=== PATIENT | female | born 1960 ===

== ENCOUNTER 2017-10-05 06:18 | Observation (INO) | payer MEDICARE ==
[2017-10-02 11:07] VITALS: BMI 23.0
[2017-10-05] MEDS ORDERED: Midazolam 2 MG/2 ML VIAL ONE (07:19)
[2017-10-05] MEDS ORDERED: Propofol 10 mg/ml Inj (20 ML) ONE (07:19)
[2017-10-05] MEDS ORDERED: ePHEDrine 50 mg/ml Inj ONE (07:20)
[2017-10-05] MEDS ORDERED: Succinylcholine 200 mg/10 ml Inj IV ONE (07:20)
[2017-10-05] MEDS ORDERED: Rocuronium 10 mg/ml (5 ml) ONE ×2 (07:20→09:22)
[2017-10-05] MEDS ORDERED: Lactated Ringer's 1,000 ML IV ONE ×2 (08:00→08:10)
--- NOTE | 2017-10-05 08:06 | CP.SDSHP ---
Same Day Surgery H & P - History Proposed Procedure: Sacral colpopexy, supracervical hysterectomy, cystoscopy, ureteral stents - Allergies Allergies: Allergies No Known Allergies Allergy (Verified 10/05/17 07:23) - Physical Exam Vital Signs: Vital Signs 10/05/17 10/05/17 07:07 07:16 Temperature 97.7 F Pulse Rate 74 74 Respiratory 18 Rate Blood Pressure 110/84 O2 Sat by Pulse 100 Oximetry - Impression Impression: Uterine prolapse and cystocele the patient was informed of the risks benefits and alternatives to the surgery we discussed conservative management with pessary we discussed surgical management with sacral colpopexy. We discussed the risks associated with mesh we discussed the risks associated with [place] tissue repair. After thorough discussion patient opted for Y mesh. We discussed the risk of bleeding infection organ injury to bowel bladder or ureter sacral promontory. The patient was given the opportunity to ask questions and all her questions were answered and she agreed to plan of care - Date & Time Date: 10/05/17 Time: 08:06 Short Stay Discharge - Short Stay Discharge Admitting Diagnosis/Reason for Visit: N81.4 Disposition: HOME/ ROUTINE Referrals: Dain Hunter MD [Primary Care Provider] -
[2017-10-05] MEDS ORDERED: Sodium Chloride 0.9% 1,000 ML IV ONE (08:30)
[2017-10-05] MEDS: Bupivacaine HCl 0.5% PF (30 ml) Inj ONE ×2 (08:41→08:55)
[2017-10-05] MEDS ORDERED: Neostigmine 1:1000 (1 mg/ml) Inj ONE (08:59)
[2017-10-05] MEDS ORDERED: Sevoflurane - Inhalation Anesthetic Liq (250 ml) ONE (11:03)
[2017-10-05] MEDS ORDERED: Naloxone 0.4 mg/ml Inj (Adult) IVP PRN (13:24)
[2017-10-05] MEDS ORDERED: Morphine 4 MG/ML VIAL ONE ×3 (13:27→14:02)
[2017-10-05] MEDS ORDERED: Oxycodone/Acetaminophen 5/325 mg Tab PO PRN (14:46)
[2017-10-05] MEDS: ceFAZolin 1 GM in Sodium Chloride 0.9% 100 ML IVPB SCH ×2 (16:42→22:25)
[2017-10-06 03:21] VITALS: PULSE 82
[2017-10-06] MEDS: ceFAZolin 1 GM in Sodium Chloride 0.9% 100 ML IVPB SCH (06:11)
[2017-10-06 09:32] VITALS: BP 110/80; RESP 19; TEMP 97.9; O2SAT 100
--- NOTE | 2017-10-06 15:41 | OP ---
PROCEDURE DATE: 10/05/2017 PREOPERATIVE DIAGNOSES: Uterine prolapse, cystocele. POSTOPERATIVE DIAGNOSES: Uterine prolapse, cystocele. OPERATION PERFORMED: Supracervical hysterectomy, cystoscopy with stent placement and injection of ICG-Green, and sacrocolpopexy. SURGEON: Morenita Gutiérrez MD STRETCHER OPERATOR: Theo Mccormack MD. He was instrumental in the care of the patient, he helped to create exposure. He was helpful on extraction and manipulation of the tissues and extraction of the specimen and closure of the patient. The procedure would not have been possible without his assistance. TYPE OF ANESTHESIA: General. ANESTHESIA ADMINISTERED BY: Dr. Hoffman. ESTIMATED BLOOD LOSS: 50 mL. URINE OUTPUT: Willoughby catheter put out approximately 400 mL of clear urine. INTRAVENOUS FLUID INTAKE: The patient received 2500 mL of D5 LR intraoperatively. OPERATIVE FINDINGS: Bladder, small uterus, normal ovaries, previous salpingectomy. Cystoscopic evaluation revealed clear efflux of the urine through the ureters. The dome of the bladder was noted to be intact post-procedure. DESCRIPTION OF PROCEDURE: After informed consent was obtained, we discussed conservative medical management and surgical management with the patient. We discussed use of pessary. We discussed the procedure of sacrocolpopexy with a Y-Mesh. We discussed the risk with mesh. The patient was given the opportunity to ask questions. All questions were answered. The patient was informed the risks, benefits, and alternatives. The patient agreed to proceed with the procedure. After informed consent was obtained, the patient was taken to the operating room where she was given general anesthesia. She was prepped and draped in a normal sterile fashion. She was placed in a dorsal lithotomy position and Dolphin stirrups. Attention was then turned to the vagina. A cystoscope was inserted into the bladder. The left ureter orifice was identified, it was stented, ICG-Green was injected. A similar procedure was performed on the left. Attention was then turned to the vagina, a speculum was inserted. The cervix was visualized and grasped with a single tooth tenaculum. The cervix was then gently dilated and V-Care uterine manipulator was inserted into the uterine cavity and needs to manipulate the uterus. A Willoughby catheter was inserted into the bladder to monitor the patient's urinary output. Attention was then turned to the umbilicus where approximately 2 cm superior to the umbilicus an 8 mm incision was made after the infusion of Marcaine. The abdomen was then tented upward and the Veress needle was inserted. Placement was confirmed with the fluid-filled syringe. The abdomen was then insufflated to 18 mmHg and an 8 mm robotic port was introduced into the abdominal cavity. Placement was confirmed with laparoscope. Attention was then turned to approximately 5 cm superior to the right anterior iliac crest. The skin was infused with Marcaine and 8 mm incision was made and additional robotic port was introduced into the abdominal cavity and a similar procedure was performed on to the left. Attention was then turned to approximately 10 cm right and lateral to the umbilicus. Marcaine was infused and an 8 mm incision was made and additional robotic port was introduced into the abdominal cavity. Approximately 10 cm left and lateral to the umbilicus, a 12 mm incision was made and an assist port was introduced into the abdominal cavity under direct visualization. The patient was then placed in deep Trendelenburg, the table was lowered and the robot was docked without complication. The instruments used in the surgery were a single tooth tenaculum, ProGrasp, Dashawn SutureCut, scissor, and a PK dissector. The instruments were loaded into the robot and I proceeded to break and approach the surgical consult. Attention was then turned to the right utero-ovarian ligament, which was serially coagulated to the right and transected with the scissor. The patient had a previous tubal ligation. The round ligament was then serially coagulated and transected. The anterior leaf of the peritoneum was then undermined with the PK dissector, transected with the scissor down to the level of the V-Care cup anteriorly. A similar procedure was performed posteriorly. The uterine arteries were then skeletonized and then coagulated. Attention was then turned to the right side where in similar fashion the utero-ovarian ligament was identified, serially coagulated, and transected with the scissors. The round ligaments were then identified, serially coagulated, and transected with the scissors. The peritoneum was then undermined anteriorly down to the level of V-Care cup. Attention was then posteriorly where the peritoneum was undermined and dissected down to the level of V-Care cup. The uterine arteries were then serially coagulated and transected. A supracervical hysterectomy was then performed using the Hot Rik. The uterus was placed in the left paracolic gutter. Attention was then turned to the sacral promontory where the peritoneum was attempted upward, incised, and the sacral ligament was dissected and identified and the area was noted to be hemostatic. Attention was then turned to the anterior space. The tenaculum was then inserted into the abdomen and cervical stump was grasped and put under attention. The reflection of the bladder was then elevated in the space between the vagina and bladder were dissected without complication and noted to be hemostatic. A similar procedure was performed posteriorly. The Y-Mesh was then inserted. The mesh was tacked down to the anterior vaginal wall anteriorly. The mesh was tied down to the posterior aspect of the vaginal wall posteriorly. It was tack down with 2-0 Vicryl. The mesh was tack down to the sacral ligament using two [place] sutures. The peritoneum was then closed. The abdomen was irrigated. The irrigant was removed with the suction device and the abdomen was noted to be hemostatic. All instruments were then removed from the abdomen and the robot was undocked. The uterine specimen was put into a bag and extracted by the 12 mm port. The skin incisions were closed with Dermabond and 12 mm port was closed with 0-Vicryl and the skin was closed with Dermabond. We then returned to the vagina, cystoscope was then inserted in to the bladder, the bladder was surveyed, no mesh was identified, there was clear urine and clear bilateral efflux. All instruments were then removed from the vagina. Instrument counts were correct x2 and the patient was taken to the recovery room in awake and stable condition. Morenita Gutiérrez MD
== END 2017-10-06 16:00 | disposition home or self-care (01) ==
LOC: H.OPSURG 06:18 → H.MEDSURG1 14:46
PROVIDERS: ADMIT Obstetrics & Gynecology Gynecology; ATTEND Obstetrics & Gynecology Gynecology
DX: N81.4 Uterovaginal prolapse, unspecified (principal)
CPT/HCPCS: 36415; 52332; 57425; 58541; 86850; 86860; 86870; 86900; 88307; G0378; J0330; J0690; J2001; J2250; J2270; J2274; J2405; J2704; J2710; J3010; J7040; J7120; S2900

== ENCOUNTER 2017-12-17 17:29 | Emergency (ER) | payer MEDICARE ==
[2017-12-17 17:30] VITALS: BMI 23.0
[2017-12-17 17:38] VITALS: BP 139/89; PULSE 85; RESP 16; TEMP 98.4; O2SAT 100
--- NOTE | 2017-12-17 19:40 | ED PDOC ---
Upper Extremity Pain/Injury Time Seen by Provider: 12/17/17 18:15 Chief Complaint (Nursing): Upper Extremity Problem/Injury Chief Complaint (Provider): Right Arm Pain History Per: Patient History/Exam Limitations: no limitations Onset/Duration Of Symptoms: Days Current Symptoms Are (Timing): Still Present Additional Complaint(s): 57 year old female presents to the ED for evaluation of right arm pain. Patient states the pain begins at elbow and radiates. She reports difficulty bending her arm. Patient took Tylenol without any relief. She visited Dr. Hunter and was sent for x-ray. Pt has RX for elbow XR. Pt states she did not go yet because she thought the pain would improve. Denies trauma or injury. PMD: Dain Hunter Past Medical History Reviewed: Historical Data, Nursing Documentation, Vital Signs Vital Signs: Last Vital Signs Temp 98.4 F 12/17/17 17:36 Pulse 85 12/17/17 17:36 Resp 16 12/17/17 17:36 BP 139/89 12/17/17 17:36 Pulse Ox 100 12/17/17 17:36 - Medical History PMH: Arthritis (hands,joints), Fibromyalgia Denies: HIV, Chronic Kidney Disease - Surgical History Surgical History: Appendectomy - Family History Family History: States: Unknown Family Hx - Home Medications Home Medications: Ambulatory Orders Medication Instructions Recorded Amitriptyline [Elavil] 30 mg PO HS 01/24/16 Celecoxib [celeBREX] 200 mg PO BID PRN 01/24/16 Colchicine [Colcrys] 0.6 mg PO Q48H 01/24/16 Diclofenac Sodium [Voltaren] 1 appl TOP QID PRN 01/24/16 Folic Acid 7 mg PO DAILY 01/24/16 Hydroxychloroquine Sulfate 200 mg PO BID 01/24/16 [Plaquenil] Methotrexate 7.5 mg PO QWK 01/24/16 Cholecalciferol [Vitamin D] 1,000 iu PO DAILY 10/05/17 predniSONE [predniSONE Tab] 20 mg PO DAILY #12 tab 12/17/17 - Allergies Allergies/Adverse Reactions: Allergies Allergy/AdvReac Type Severity Reaction Status Date / Time No Known Allergies Allergy Verified 10/05/17 07:23 Review of Systems ROS Statement: Except As Marked, All Systems Reviewed And Found Negative Constitutional: Negative for: Fever, Chills Musculoskeletal: Positive for: Arm Pain (right) Psych: Negative for: Suicidal ideation (homicidal ideation) Physical Exam - Reviewed Nursing Documentation Reviewed: Yes Vital Signs Reviewed: Yes - Physical Exam Appears: Positive for: Non-toxic, No Acute Distress Head Exam: Positive for: ATRAUMATIC, NORMAL INSPECTION, NORMOCEPHALIC Skin: Positive for: Normal Color (No erythema, no ecchymosis ) Eye Exam: Positive for: Normal appearance ENT: Positive for: Normal ENT Inspection Neck: Positive for: Normal Cardiovascular/Chest: Negative for: Bradycardia, Tachycardia Respiratory: Negative for: Accessory Muscle Use, Respiratory Distress Pulses-Radial (L): 2+ Pulses-Radial (R): 2+ Extremity: Positive for: Normal ROM, Tenderness (medial and lateral epicondyle ) , Other (Sensation intact ). Negative for: Deformity Neurologic/Psych: Positive for: Alert, Oriented - ECG O2 Sat by Pulse Oximetry: 100 (RA) Pulse Ox Interpretation: Normal Medical Decision Making Medical Decision Making: Time: 1814 --Naproxen --Right elbow XR Scribe Attestation: Documented by Pablo North, acting as a scribe for Mikala Miller PA-C. Provider Scribe Attestation: All medical record entries made by the Scribe were at my direction and personally dictated by me. I have reviewed the chart and agree that the record accurately reflects my personal performance of the history, physical exam, medical decision making, and the department course for this patient. I have also personally directed, reviewed, and agree with the discharge instructions and disposition. Disposition - Clinical Impression Clinical Impression: Epicondylitis - Patient ED Disposition Is Patient to be Admitted: No - Disposition Referrals: Dain Hunter MD [Family Provider] - Disposition: Routine/Home Disposition Time: 20:48 Condition: GOOD Prescriptions: predniSONE [predniSONE Tab] 20 mg PO DAILY #12 tab Instructions: Medial Epicondylitis Exercises, Lateral Epicondylitis Exercises Forms: [facility] (Romanian) Print Language: SERBIAN
[2017-12-17] MEDS ORDERED: Naproxen 500 MG TAB PO STA (19:47)
[2017-12-17] MEDS ORDERED: Naproxen 500 MG TAB PO ONE (19:53)
--- NOTE | 2017-12-18 10:33 | RAD ---
Date of service: 12/17/2017 PROCEDURE: Radiographs of the right elbow. HISTORY: elbow pain COMPARISON: No prior. FINDINGS: BONES: No acute fracture or destructive bony lesion identified. JOINTS: Normal. No osteoarthritis. SOFT TISSUES: Normal. JOINT EFFUSION: None. OTHER FINDINGS: None. IMPRESSION: Unremarkable radiographs of the right elbow.
== END 2017-12-17 21:11 | disposition home or self-care (01) ==
LOC: H.ER 17:29 → SUPCPDRO 17:29 → H.ER 20:08
DX: M77.01 Medial epicondylitis, right elbow (principal); M79.7 Fibromyalgia